=== PATIENT | female | born 1940 | race Caucasian/White ===

== ENCOUNTER 2017-03-24 10:21 | Inpatient (IN) ==
[2017-03-24 11:21] LABS: Basophils # 0.1 10*3/uL (0.0-0.2); Basophils % 0.7 % (0.0-0.8); Eosinophils # 0.5 10*3/uL (0.0-0.87); Eosinophils % 6.9 % (0.00-10.9); Hematocrit 31.2 VOL% (35.7-47.0); Hemoglobin 9.5 GM/DL (12.0-16.0); Immature Granulocytes % 0.4 %; Immature Granulocytes Absolute 0.03 #; Lymphocytes # 1.6 10*3/uL (1.4-4.0); Mean Corpuscular HGB Conc 30.4 GM/DL (32-36); Mean Corpuscular Hemoglobin 24 PG (27-34); Mean Corpuscular Volume 77.2 FL (87-102); Mean Platelet Volume 9.9 FL (9.6-12.0); Monocytes # 0.7 10*3/uL (0.11-0.8); Monocytes % 10.8 % (1.7-12.7); Neutrophils # 3.8 10*3/uL (1.4-7.4); Neutrophils % 57.2 % (38.7-73.9); Platelet Count 284 T/CUMM (130-400); Red Blood Count 4.04 MC/CUMM (3.8-5.5); Red Cell Distribution Width 16.6 % (9.3-17.3); White Blood Count 6.7 T/CUMM (4-12)
[2017-03-24 11:53] LABS: Calcium 9.3 MG/DL (8.5-10.1); Osmolality,Calculated 277.8 MOS/KG (273-304); Potassium 4.8 MMOL/L (3.5-5.1)
[2017-03-24] MEDS ORDERED: METOPROLOL SUCCINATE XL 50 MG TABLET PO ONE (12:07)
[2017-03-24] MEDS: LACTATED RINGERS 1,000 ML IV SCH ×2 (12:28→18:05)
[2017-03-24] MEDS ORDERED: METOPROLOL TARTRATE 25 MG TABLET ONE (12:32)
[2017-03-24] MEDS ORDERED: CLINDAMYCIN INJ 50 ML IV ONE (12:36)
[2017-03-24] MEDS ORDERED: LIDOCAINE 1%/EPI INJ 20 ML VIAL ONE (13:05)
[2017-03-24] MEDS ORDERED: PROPOFOL 200 MG/20 ML VIAL IV ONE (13:20)
--- NOTE | 2017-03-24 14:04 | Operative Note ---
Date of procedure: 03/24/17 Pre-op diagnosis: Left axillary wound infection Post-op diagnosis: same Procedure: Procedure performed: Incision and drainage of left axillary postop wound infection Procedure in detail: After informed consent was obtained, patient taken operating suite lies upon the operating table. After monitored anesthesia initiated the left axilla was prepped and draped in usual sterile fashion. After procedural pause local anesthetic and was tried in the skin and subcutaneous tissue and a 15 blade scalpel was used to open the old incision. There was return of foul-smelling purulence. Cultures obtained and sent. All loculations were freed. Approximately 10 cc of purulence removed. The wound was thoroughly irrigated and suctioned. There is good hemostasis. The wound was packed with 2 inch iodoform gauze. Sterile dressings applied and the patient tolerated the procedure well. She was taken to recovery room in stable condition. All lap and needle counts correct at the end of the case Anesthesia: MAC, local Surgeon / Physician: Onesimo Mobley Estimated blood loss: other (Less than 10 cc) Specimens: other (Culture sent) Condition: stable Disposition: PACU Results - Labs CBC & BMP: 03/24/17 11:15 03/24/17 11:15 Discharge Plan - Discharge Medications No Action Cyanocobalamin (Vitamin B-12) [Vitamin B-12] 1 ml IM Q30D Dabigatran [Pradaxa] 150 mg PO BID Furosemide Tab [Lasix Tab] 20 mg PO DAILY Insulin NPH Hum/Reg Insulin Hm [NovoLIN 70/30] 30 unit SUBCUT BEDTIME Insulin NPH Hum/Reg Insulin Hm [NovoLIN 70/30] 40 unit SUBCUT QAM Metformin HCl 500 mg PO BID Metoprolol Succinate Xl [Toprol Xl] 50 mg PO DAILY Omeprazole [Prilosec] 20 mg PO DAILY Potassium Chloride 10 meq PO DAILY Simvastatin [Zocor] 40 mg PO BEDTIME Magnesium Chloride [Slow-Mag] 71.5 mg PO DAILY Multivit-Min36/Iron/Folic Acid [Geritol Complete Tablet] 1 each PO DAILY - Follow Up or Referral - Forms/Instructions
--- NOTE | 2017-03-24 14:12 | Anesthesia Post-Op ---
Anesthesia Post OP - Post Ansesthetic Evaluation Patient seen in post op: Yes Resp: within normal limits CV: within normal limits Mental: within normal limits Temp: within normal limits [id number]: within normal limits Nausea and Vomiting: within normal limits Pain: within normal limits
[2017-03-24] MEDS ORDERED: HYDROmorphone 2 MG/1 ML VIAL ONE (14:13)
[2017-03-24] MEDS ORDERED: ONDANSETRON 4 MG/2 ML VIAL ONE (14:13)
[2017-03-24] MEDS ORDERED: fentaNYL 100 MCG/2 ML VIAL ONE (14:17)
[2017-03-24] MEDS ORDERED: MIDAZOLAM 2 MG/2 ML VIAL ONE (14:17)
[2017-03-24] MEDS ORDERED: HYDROmorphone 2 MG/1 ML VIAL IV PRN ×2 (14:21→14:57)
[2017-03-24] MEDS ORDERED: ONDANSETRON 4 MG/2 ML VIAL IV PRN ×2 (14:21→14:57)
[2017-03-24] MEDS ORDERED: ACETAMINOPHEN 325 MG TABLET PO PRN (14:57)
[2017-03-24] MEDS ORDERED: BISACODYL 5 MG TABLET PO PRN (14:57)
[2017-03-24] MEDS ORDERED: DEXTROSE 50% 25 GM/50 ML VIAL IV PRN (14:57)
[2017-03-24] MEDS ORDERED: GLUCAGON 1 MG VIAL IM PRN (14:57)
[2017-03-24] MEDS ORDERED: NON-FORMULARY MEDICATION (Omeprazole [Prilosec] 20 MG) PO SCH (15:33)
[2017-03-24] MEDS: METOPROLOL SUCCINATE XL 50 MG TABLET PO SCH (17:13)
[2017-03-24] MEDS: FUROSEMIDE 40 MG TABLET PO SCH (17:14)
[2017-03-24] MEDS: POTASSIUM CHLORIDE 10 MEQ TABLET PO SCH (17:15)
[2017-03-24] MEDS: CLINDAMYCIN INJ 600 MG in PREMIX 1 EACH IV SCH ×2 (17:16→21:27)
[2017-03-24] MEDS: INSULIN LISPRO 100 UNIT/ML SUBCUT SCH (18:05)
[2017-03-24] MEDS ORDERED: SIMVASTATIN 40 MG TABLET PO SCH (21:00)
[2017-03-25] MEDS: CLINDAMYCIN INJ 600 MG in PREMIX 1 EACH IV SCH ×2 (04:19→09:42)
[2017-03-25 06:51] LABS: Basophils # 0.1 10*3/uL (0.0-0.2); Basophils % 0.7 % (0.0-0.8); Eosinophils # 0.5 10*3/uL (0.0-0.87); Eosinophils % 7.1 % (0.00-10.9); Hematocrit 28.7 VOL% (35.7-47.0); Hemoglobin 8.5 GM/DL (12.0-16.0); Immature Granulocytes % 0.3 %; Immature Granulocytes Absolute 0.02 #; Lymphocytes # 1.3 10*3/uL (1.4-4.0); Lymphocytes % 18.9 % (21.3-54.2); Mean Corpuscular HGB Conc 29.6 GM/DL (32-36); Mean Corpuscular Hemoglobin 23 PG (27-34); Mean Corpuscular Volume 78.2 FL (87-102); Monocytes # 0.7 10*3/uL (0.11-0.8); Monocytes % 9.9 % (1.7-12.7); Neutrophils # 4.3 10*3/uL (1.4-7.4); Neutrophils % 63.1 % (38.7-73.9); Platelet Count 277 T/CUMM (130-400); Red Blood Count 3.67 MC/CUMM (3.8-5.5); Red Cell Distribution Width 16.5 % (9.3-17.3); White Blood Count 6.8 T/CUMM (4-12)
[2017-03-25] MEDS ORDERED: PANTOPRAZOLE 40 MG TABLET PO SCH (09:00)
[2017-03-25] MEDS ORDERED: MULTIVITAMIN (CENTRUM) TABLET PO SCH (09:00)
[2017-03-25] MEDS ORDERED: MAGNESIUM CHLORIDE 64 MG TABLET PO SCH (09:00)
[2017-03-25] MEDS: LACTATED RINGERS 1,000 ML IV SCH ×2 (09:09→12:37)
[2017-03-25] MEDS: METOPROLOL SUCCINATE XL 50 MG TABLET PO SCH (09:11)
[2017-03-25] MEDS: INSULIN LISPRO 100 UNIT/ML SUBCUT SCH (09:11)
[2017-03-25] MEDS: POTASSIUM CHLORIDE 10 MEQ TABLET PO SCH (09:12)
[2017-03-25] MEDS: FUROSEMIDE 40 MG TABLET PO SCH (09:12)
--- NOTE | 2017-03-25 10:25 | Discharge Summary ---
Hospital Course - Hospital Course Hospital Course: 76-year-old white female with history of breast cancer, hypertension, and CVA admitted by Dr. Mobley from his office with a left axillary wound infection on 03/24/2017. Patient had a wire localized left breast lumpectomy with sentinel node biopsy for left breast cancer on 03/04/2017. She came in for her postop follow-up visit and she had signs of surgical site infection including redness and swelling along with pain. She had gone to her doctor in [place] and they started her on some antibiotics about a week ago and a CT scan showed fluid buildup. Patient was taken to the operating room for incision and drainage of this left axillary postop wound infection. There was approximately 10 cc of foul-smelling purulence that was irrigated and suctioned. Today patient's wound is clean with no signs of cellulitis. Wound care orders have been written and she will get home health to assist with her wound care. She will be discharged home on antibiotics and pain medicines and she will follow- up with Dr. Mobley in his office in 1 week. Complete discharge instructions were given to the patient and family in the room. Care coordination, chart review, and completed discharge paperwork took approximately 38 minutes. - Time spent with patient Time with patient DS: Greater than 30 minutes Diagnosis - Discharge Diagnosis (1) Hypertension Status: Chronic (2) Cancer of left breast Status: Chronic (3) Surgical site infection Status: Resolved (4) History of CVA (cerebrovascular accident) Status: Chronic Specialty Discharge - Follow Up or Referrals Follow up with: Onesimo Mobley MD [Physician] - 04/01/17 10:15 am Discharge Plan - Discharge Data Disposition: Home Health Service Condition at Discharge: Stable Discharge Diet: heart healthy Activity: no lifting Hygiene: may shower Driving: other (No driving if taking pain medications) Contact your physician if you experience:: fever over 101, Redness or swelling Wound / Dressing Care Instructions: Shower daily with Hibiclens, rinse thoroughly, irrigate with Dakin's and pack with Dakin's moistened gauze, cover with dry towels and paper tape - Discharge Medications New Clindamycin Cap [Cleocin Cap] 300 mg PO QID #28 capsule HYDROcodone/ACETAMIN 7.5-325 [Magnolia 7.5-325] 1 tablet PO Q4H PRN #30 tablet PRN Reason: Pain Moderate (4-7) Continue Cyanocobalamin (Vitamin B-12) [Vitamin B-12] 1 ml IM Q30D Dabigatran [Pradaxa] 150 mg PO BID Furosemide Tab [Lasix Tab] 20 mg PO DAILY Insulin NPH Hum/Reg Insulin Hm [NovoLIN 70/30] 30 unit SUBCUT BEDTIME Insulin NPH Hum/Reg Insulin Hm [NovoLIN 70/30] 40 unit SUBCUT QAM Metformin HCl 500 mg PO BID Metoprolol Succinate Xl [Toprol Xl] 50 mg PO DAILY Omeprazole [Prilosec] 20 mg PO DAILY Potassium Chloride 10 meq PO DAILY Simvastatin [Zocor] 40 mg PO BEDTIME Magnesium Chloride [Slow-Mag] 71.5 mg PO DAILY Multivit-Min36/Iron/Folic Acid [Geritol Complete Tablet] 1 each PO DAILY - Follow Up or Referral Follow Up: Onesimo Mobley MD [Physician] - 04/01/17 10:15 am - Forms/Instructions Exam - Constitutional Vitals: Period Temp Pulse Resp BP Sys/Celaya Pulse Ox Last 24 Hr 97.2 F-98.0 F 59-81 16-20 115-165/50-81 94-100 Exam: 76-year-old white female, no acute distress, alert and oriented Chest clear CV regular rate and rhythm Abdomen soft nontender Extremities no pedal edema, left axillary wound is clean with no signs of infection Discharge Results Procedures and tests throughout hospitalization: Pending Orders 03/24/17 Abscess Culture Routine Anaerobic Culture Routine Labs on day of discharge: Labs from last 24 hours 03/25/17 03/25/17 03/24/17 07:22 05:46 20:46 WBC 6.8 RBC 3.67 L Hgb 8.5 L Hct 28.7 L MCV 78.2 L MCH 23 L MCHC 29.6 L RDW 16.5 Plt Count 277 MPV 11.0 Neut % (Auto) 63.1 Lymph % (Auto) 18.9 L Kent % (Auto) 9.9 Eos % (Auto) 7.1 Baso % (Auto) 0.7 Neut # (Auto) 4.3 Lymph # (Auto) 1.3 L Kent # (Auto) 0.7 Eos # (Auto) 0.5 Baso # (Auto) 0.1 Immature Gran % 0.3 Nucleated RBC % 0.0 Immature Gran # 0.02 Nucleated RBCs # 0.00 Sodium Potassium Chloride Carbon Dioxide Anion Gap BUN Creatinine GFR Calculation BUN/Creatinine Ratio Glucose POC Glucose 219 H 166 H Calculated Osmolality Calcium 03/24/17 03/24/17 03/24/17 16:22 11:15 11:15 WBC 6.7 RBC 4.04 Hgb 9.5 L Hct 31.2 L MCV 77.2 L MCH 24 L MCHC 30.4 L RDW 16.6 Plt Count 284 MPV 9.9 Neut % (Auto) 57.2 Lymph % (Auto) 24.0 Kent % (Auto) 10.8 Eos % (Auto) 6.9 Baso % (Auto) 0.7 Neut # (Auto) 3.8 Lymph # (Auto) 1.6 Kent # (Auto) 0.7 Eos # (Auto) 0.5 Baso # (Auto) 0.1 Immature Gran % 0.4 Nucleated RBC % 0.0 Immature Gran # 0.03 Nucleated RBCs # 0.00 Sodium 137 Potassium 4.8 Chloride 101 Carbon Dioxide 31 Anion Gap 9.8 BUN 18 Creatinine 0.90 GFR Calculation 82 BUN/Creatinine Ratio 20.00 Glucose 154 H POC Glucose 157 H Calculated Osmolality 277.8 Calcium 9.3 DS: Provider Date of admission: 03/24/17 14:57 Primary care physician: . No PCP Attending physician on admission: Onesimo Mobley MD Consults: 03/25/17 10:18 Consult to Case Mgmt/Social Srvs [CONS] Routine Reason for Case Mgmt/Social Srvs: Home Health Consult Comment: wound care Discharging clinician: JAROCHO Potts Expected date of discharge: 03/25/17
[2017-03-25 12:03] VITALS: BP 128/53
[2017-04-23] MEDS ORDERED: CYANOCOBALAMIN 1000 MCG/1 ML VIAL IM SCH (09:00)
== END 2017-03-25 13:34 | disposition home health service (06) | DRG 863 ==
LOC: N.OR 10:21 → N.SDSINP 10:43 → N.3E 14:57
PROVIDERS: ADMIT Surgery; ATTEND Surgery